=== PATIENT | female | born 2000 | race Hispanic/Latino ===

== ENCOUNTER 2022-06-04 14:05 | Inpatient (IN) | payer OTHER, SELFPAY ==
[2022-06-04] VITALS (25 sets, daily range): BP systolic 68–143; BP diastolic 36–82; PULSE 88–113; TEMP 36.5–36.6; BMI 33.7
--- NOTE | 2022-06-04 14:10 | LDADM ---
This patient, Roseline Cruz, was admitted to Labor/Delivery/Recovery 106 on 06/04/22 at 14:05. Plans for labor, pain management and were discussed with patient. Patient/family oriented to hospital policies and general routines including ID bracelet, bed and alarms, visiting hours, pain management, procedures, bathroom and other care routines, personal items, smoking policy, room service/diet and guest tray routines, infant security routines, and visiting hours. Patient/Family are encouraged to report perceived risks to care and to ask questions if they do not understand what they are told or what they should do. See OBIX for further documentation.
--- OUTSIDE RECORDS SUMMARY | 2022-06-04 14:15 | XMS_ITS | Encounter Summary ---
:2000 Author Care Team Providers Name Role Phone Broderick Treadwell MD Primary Care Provider [phone] Nelda Treadwell Primary Care Provider [phone] Reason for Visit OB visit Assessment and Plan 1. Routine care 2. History of SARS-CoV-2 Discussion Note: None recorded.Patient educational handouts: No information available. Plan of Care Reminders Provider Appointments None recorded. ? ? Lab None recorded. ? ? Referral None recorded. ? ? Procedures None recorded. ? ? Surgeries None recorded. ? ? Imaging None recorded. ? ? Medications Name Start Date ? ? ? Medications Administered None recorded. Vitals Height Weight BMI Blood Pressure 5 ft 6 in 199 lbs 32.1 kg/m2 122/80 mm[Hg] Results Lab Results None recorded. Allergies Code Code System Name Reaction Severity Onset NKDA ? ? ? Problems Name Status Onset Date Source ? Active 11/26/2021 ? History of SARS-CoV-2 Active ? ? Procedures Date Name Performed by ? 02/25/2022 US, Obstetric, Follow-up [place] [address] [place] [address] ([address]) 03/25/2022 US, Obstetric, Follow-up [place] [address] [place] [address]
--- OUTSIDE RECORDS SUMMARY | 2022-06-04 14:15 | XMS_ITS | Encounter Summary ---
:2000 Author Care Team Providers Name Role Phone Broderick Treadwell MD Primary Care Provider [phone] Nelda Treadwell Primary Care Provider [phone] Reason for Visit None recorded. Assessment and Plan 1. Pre-existing maternal disease compli cating ? US, obstetric, follow-up Discussion Note: None recorded.Patient educational handouts: No information available. Plan of Care Reminders Provider Appointments None recorded. ? ? Lab None recorded. ? ? Referral None recorded. ? ? Procedures None recorded. ? ? Surgeries None recorded. ? ? Imaging US, Obstetric, Follow-up 04/23/2022 Martin hyman Medications Name Start Date ? ? ? Medications Administered None recorded. Vitals None recorded. Results Lab Results None recorded. Allergies Code Code System Name Reaction Severity Onset NKDA ? ? ? Problems Name Status Onset Date Source ? Active 11/26/2021 ? History of SARS-CoV-2 Active ? ? Procedures Date Name Performed by ? 03/25/2022 US, Obstetric, Follow-up [place] [address] [place] [address] (Work [address]) 04/23/2022 US, Obstetric, Follow-up [place] [address] [place] [address] ([address]) Vaccine List None recorded. Social History
--- OUTSIDE RECORDS SUMMARY | 2022-06-04 14:15 | XMS_ITS | Encounter Summary ---
:2000 Author Care Team Providers Name Role Phone Broderick Treadwell MD Primary Care Provider [phone] Nelda Treadwell Primary Care Provider [phone] Reason for Visit OB visit Assessment and Plan 1. Routine care ? breast pump Discussion Note: None recorded.Patient educational handouts: No [...] BMI Blood Pressure 5 ft 6 in 201 lbs 32.4 kg/m2 110/78 mm[Hg] Results Lab Results None recorded. Allergies Code Code System Name Reaction Severity Onset NKDA ? ? ? Problems Name Status Onset Date Source ? Active 11/26/2021 ? History of SARS-CoV-2 Active ? ? Procedures Date Name Performed by ? 03/25/2022 US, Obstetric, Follow-up [place] [address] [place] [address] (Work [address]) Vaccine List None recorded. Social History Tobacco Smoking Status Never Smoker Do you have difficulty walking or climbing stairs? N What type of diet are you following? REGULAR
--- OUTSIDE RECORDS SUMMARY | 2022-06-04 14:15 | XMS_ITS | Encounter Summary ---
:2000 Author Care Team Providers Name Role Phone Broderick Treadwell MD Primary Care Provider [phone] Nelda Treadwell Primary Care Provider [phone] Reason for Visit None recorded. Assessment and Plan 1. COVID-19 ? US, obstetric, follow-up Discussion Note: None recorded.Patient educational handouts: No information available. Plan of Care Reminders Provider Appointments None recorded. ? ? Lab None recorded. ? ? Referral None recorded. ? ? Procedures None recorded. ? ? Surgeries None recorded. ? ? Imaging US, Obstetric, Follow-up 05/22/2022 Martin hyman Medications Name Start Date ? ? ? Medications Administered None recorded. Vitals None recorded. Results Lab Results None recorded. Allergies Code Code System Name Reaction Severity Onset NKDA ? ? ? Problems Name Status Onset Date Source ? Active 11/26/2021 ? History of SARS-CoV-2 Active ? ? Procedures Date Name Performed by ? 04/23/2022 US, Obstetric, Follow-up [place] [address] [place] [address] ([address]) 05/22/2022 US, Obstetric, Follow-up [place] [address] [place] [address] ([address]) Vaccine List None recorded. Social History Tobacco Smoking S
--- OUTSIDE RECORDS SUMMARY | 2022-06-04 14:15 | XMS_ITS | Encounter Summary ---
:2000 Author Care Team Providers Name Role Phone Broderick Treadwell MD Primary Care Provider [phone] Nelda Treadwell Primary Care Provider [phone] Reason for Visit OB visit Assessment and [...] BMI Blood Pressure 5 ft 6 in 209 lbs 33.7 kg/m2 117/5 mm[Hg] Results Lab Results None recorded. Allergies Code Code System Name Reaction Severity Onset NKDA ? ? ? Problems Name Status Onset Date Source ? Active 11/26/2021 ? History of SARS-CoV-2 Active ? ? Procedures Date Name Performed by ? 04/23/2022 US, Obstetric, Follow-up [place] [address] [place] [address] ([address]) 05/22/2022 US, Obstetric, Follow-up [place] [address] [place] [address]
--- OUTSIDE RECORDS SUMMARY | 2022-06-04 14:15 | XMS_ITS | Encounter Summary ---
:2000 Author Care Team Providers Name Role Phone Broderick Treadwell MD Primary Care Provider [phone] Nelda Treadwell Primary Care Provider [phone] Reason for Visit OB visit Assessment and [...] BMI Blood Pressure 5 ft 6 in 204 lbs 32.9 kg/m2 114/77 mm[Hg] Results Lab Results None recorded. Allergies Code Code System Name Reaction Severity Onset NKDA ? ? ? Problems Name Status Onset Date Source ? Active 11/26/2021 ? History of SARS-CoV-2 Active ? ? Procedures Date Name Performed by ? 03/25/2022 US, Obstetric, Follow-up [place] [address] [place] [address] ([address]) 04/23/2022 US, Obstetric, Follow-up [place] [address] [place] [address]
--- OUTSIDE RECORDS SUMMARY | 2022-06-04 14:15 | XMS_ITS | Encounter Summary ---
:2000 Author Care Team Providers Name Role Phone Broderick Treadwell MD Primary Care Provider [phone] Nelda Treadwell Primary Care Provider [phone] Reason for Visit None recorded. Assessment and Plan 1. COVID-19 ? US, obstetric, follow-up Discussion Note: None recorded.Patient educational handouts: No information available. Plan of Care Reminders Provider Appointments None recorded. ? ? Lab None recorded. ? ? Referral None recorded. ? ? Procedures None recorded. ? ? Surgeries None recorded. ? ? Imaging US, Obstetric, Follow-up 03/25/2022 Martin hyman Medications Name Start Date ? ? ? Medications Administered None recorded. Vitals None recorded. Results Lab Results None recorded. Allergies Code Code System Name Reaction Severity Onset NKDA ? ? ? Problems Name Status Onset Date Source ? Active 11/26/2021 ? History of SARS-CoV-2 Active ? ? Procedures Date Name Performed by ? 02/25/2022 US, Obstetric, Follow-up [place] [address] [place] [address] ([address]) 03/25/2022 US, Obstetric, Follow-up [place] [address] [place] [address] ([address]) Vaccine List None recorded. Social History Tobacco Smoking S
--- OUTSIDE RECORDS SUMMARY | 2022-06-04 14:15 | XMS_ITS | Encounter Summary ---
:2000 Author Care Team Providers Name Role Phone Broderick Treadwell MD Primary Care Provider [phone] Nelda Treadwell Primary Care Provider [phone] Reason for Visit OB visit Assessment and Plan Assessment Note Patient is ___weeks . Discussed plan. 1. Routine care Discussion Note: None recorded.Patient educational handouts: No [...] BMI Blood Pressure 5 ft 6 in 211 lbs 34.1 kg/m2 115/81 mm[Hg] Results Lab Results None recorded. Allergies Code Code System Name Reaction Severity Onset NKDA ? ? ? Problems Name Status Onset Date Source ? Active 11/26/2021 ? History of SARS-CoV-2 Active ? ? Procedures Date Name Performed by ? 05/22/2022 , Obstetric, Follow-up [place] [address] [place] [address] ([address]) Vaccine List None recorded. Social History Tobacco Smoking Status Never Smoker Do you have difficulty walking or climbing stairs? N
[2022-06-04 15:36] LABS: Basophils Absolute Auto 0.1 K/mm3 (0.0-0.1); Basophils Percent Auto 0.5 % (0.2-1.2); Eosinophils Absolute Auto 0.1 K/mm3 (0-0.3); Eosinophils Percent Auto 0.6 % (0-4.4); Hematocrit 38.3 % (37.0-47.0); Hemoglobin 12.4 g/dL (12.0-15.0); Immature Granulocyte Absolute 0.16 K/mm3 (0.00-0.031); Immature Granulocyte Percent A 1.5 % (0-0.5); Lymphocytes Absolute Auto 2.98 K/mm3 (0.9-3.2); Lymphocytes Percent Auto 28.7 % (18.3-44.2); Mean Corpuscular HGB Conc 32.4 g/dl (32-36); Mean Corpuscular Hemoglobin 30.3 pg (26-34); Mean Corpuscular Volume 93.6 fl (80-100); Mean Platelet Volume 11.7 fl (7.4-10.4); Monocytes Absolute Auto 0.7 K/mm3 (0.1-0.6); Monocytes Percent Auto 6.3 % (2.6-8.5); Neutrophils Absolute Auto 6.5 K/mm3 (1.3-6.7); Neutrophils Percent Auto 62.4 % (45.5-73.1); Platelet Count Result 216 k/mm3 (150-375); Red Blood Count 4.09 M/mm3 (4.2-5.4); Red Cell Distribution Width 14.4 % (11.5-14.5); White Blood Count 10.4 K/mm3 (4.5-10.0)
[2022-06-04 15:47] LABS: Alanine Aminotransferase 30 U/L (6-35); Alkaline Phosphatase 328 U/L (38-126); Anion Gap 11 mmol/L (8-16); Aspartate Amino Transferase 27 U/L (14-36); Bilirubin,Total 0.4 mg/dL (0.2-1.3); Blood Urea Nitrogen 6 mg/dL (7-17); Calcium 9.4 mg/dL (8.4-10.2); Carbon Dioxide 20 mmol/L (22-30); Chloride 102 mmol/L (98-107); Estimated Glomerular Filt Rate > 60; Glucose 84 mg/dL (65-110); Potassium 3.8 mmol/L (3.4-5.0); Sodium 133 mmol/L (137-145)
[2022-06-04] MEDS: miSOPROStol 25 MCG TABLET VAGINAL ×2 (16:14→20:29)
[2022-06-05] VITALS (192 sets, daily range): BP systolic 73–136; BP diastolic 40–97; PULSE 25–138; RESP 18; TEMP 36.1–36.7; O2SAT 78–100
[2022-06-05] MEDS: OXYTOCIN 30 UNITS/NS 500 ML 30 UNITS/500 ML BAG 6 UNITS IV CONT (00:21)
[2022-06-05] MEDS: LACTATED RINGERS 1,000 ML 125 ML IV CONT ×4 (00:21→16:02)
--- NOTE | 2022-06-05 07:04 | PM.IMHP ---
H&P: HPI History of Present Illness Date/Time: 06/05/22 07:04 Chief Complaint: induction of labor Narrative: Roseline is a 21yo G1 at 39.1 who was admitted for IOL for presumed cholestasis with itching of hands and feet. cytotec x2 overnight. FHT category 1. GBS neg. otherwise uncomplicated. Review of Systems Review of Systems: All systems reviewed & are unremarkable except as noted in HPI and below PMFSH Family History Family History (Updated 05/15/22 @ 12:59 by Lacey Nayak RN) Mother Hypertension Pre-diabetes Social History Social History Smoking status: Never smoker Second hand tobacco smoke exposure: No Substance use: never Spiritual care concerns: No Meds Home Medications and Allergies Home Medications Medication Instructions Recorded Confirmed Type aspirin 81 mg tablet 81 mg PO DAILY 05/15/22 05/15/22 History prenat.vits,gema,owl-sfpd-mfgux 1 tablet PO DAILY 05/15/22 05/15/22 History Allergies Allergy/AdvReac Type Severity Reaction Status Date / Time No Known Allergies Allergy Verified 05/15/22 12:54 Vital Signs Vital Signs - 24 hr 06/04/22 15:01 06/04/22 15:16 06/04/22 15:31 Temperature Pulse Rate 89 89 96 Blood Pressure 115/77 110/71 110/73 Oxygen Delivery 06/04/22 15:46 06/04/22 16:01 06/04/22 16:16 Temperature Pulse Rate 94 103 H 88 Blood Pressure 106/71 87/55 L 105/70 Oxygen Delivery 06/04/22 16:31 06/04/22 16:46 06/04/22 17:01 Temperature Pulse Rate 92 113 H 92 Blood Pressure 106/63 111/57 L 110/61 Oxygen Delivery 06/04/22 17:16 06/04/22 17:31 06/04/22 17:46 Temperature Pulse Rate 88 89 89 Blood Pressure 101/52 L 100/53 L 96/52 L Oxygen Delivery 06/04/22 18:01 06/04/22 18:15 06/04/22 18:16 Temperature Pulse Rate 104 H 88 92 Blood Pressure 68/36 L 93/55 L 106/71 Oxygen Delivery 06/04/22 16:12 06/04/22 18:00 06/04/22 19:01 Temperature 97.7 F 97.9 F Pulse Rate 99 Blood Pressure 122/76 Oxygen Delivery 06/04/22 20:01 06/04/22 20:37 06/04/22 21:01 Temperature Pulse Rate 94 100 102 H Blood Pressure 110/67 113/69 120/73 Oxygen Delivery 06/04/22 21:31 06/04/22 22:01 06/04/22 23:01 Temperature Pulse Rate 98 90 94 Blood Pressure 143/76 H 130/70 98/82 L Oxygen Delivery 06/05/22 00:01 06/04/22 22:00 06/05/22 01:01 Temperature 97.9 F Pulse Rate 93 84 Blood Pressure 114/74 119/84 Oxygen Delivery 06/05/22 02:01 06/05/22 03:01 06/05/22 04:01 Temperature Pulse Rate 83 74 83 Blood Pressure 120/64 99/55 L 107/64 Oxygen Delivery 06/05/22 02:00 06/05/22 05:01 06/05/22 06:01 Temperature 97.9 F Pulse Rate 100 79 Blood Pressure 123/53 L 104/40 L Oxygen Delivery 06/05/22 06:00 06/05/22 06:29 06/05/22 06:31 Temperature 97.9 F Pulse Rate 108 H 84 Blood Pressure 112/63 121/64 Oxygen Delivery 06/05/22 06:46 06/04/22 15:00 06/04/22 18:29 Temperature Pulse Rate 80 Blood Pressure 127/61 Oxygen Delivery Room Air Room Air Exam Const: General: no acute distress Resp: Effort & Inspection: normal respiratory effort Auscultation: clear to auscultation bilaterally Cardio: Rate: regular rate Rhythm: regular rhythm GI: GI Palp: Yes Soft to palpation Extrem: General: normal to inspection H&P: Results Labs Labs: Short CBC 06/04/22 Range/Units 15:28 WBC 10.4 H (4.5-10.0) K/mm3 Hgb 12.4 (12.0-15.0) g/dL Hct 38.3 (37.0-47.0) % Plt Count 216 (150-375) k/mm3 BMP 06/04/22 15:28 Sodium 133 L Potassium 3.8 Chloride 102 Carbon Dioxide 20 L BUN 6 L Creatinine 0.60 L Glucose 84 Calcium 9.4 Liver Function 06/04/22 Range/Units 15:28 Total Bilirubin 0.4 (0.2-1.3) mg/dL AST 27 (14-36) U/L ALT 30 (6-35) U/L Alkaline Phosphatase 328 H (38-126) U/L Albumin 4.0 (3.5-5.1) g/dL Assessment and Plan Additional Plan Here for induction
--- NOTE | 2022-06-05 10:24 | WPDANESEPP ---
Anes - Eval Pre Procedure Procedure: Labor epidural Date/Time: 06/05/22 10:24 Surgeon: Steffany Preop Diagnosis: Abd pain with contractions Pre Op Diagnosis: Induction of Labor Patient Data Age: 21 Gender: F Height: 1.68 m Weight: 95 kg Last Vital Signs Temp 98.1 F 06/05/22 09:00 Pulse 106 H 06/05/22 10:16 BP 124/90 06/05/22 10:16 O2 Del Method Room Air 06/04/22 18:29 Allergies Allergy/AdvReac Type Severity Reaction Status Date / Time No Known Allergies Allergy Verified 05/15/22 12:54 Home Medications Medication Instructions Recorded Confirmed Type aspirin 81 mg tablet 81 mg PO DAILY 05/15/22 05/15/22 History prenat.vits,gema,lbq-aees-gfilv 1 tablet PO DAILY 05/15/22 05/15/22 History Laboratory Tests 06/04/22 06/04/22 06/04/22 15:28 15:28 15:28 WBC 10.4 K/mm3 H K/mm3 (4.5-10.0) RBC 4.09 M/mm3 L M/mm3 (4.2-5.4) Hgb 12.4 g/dL g/dL (12.0-15.0) Hct 38.3 % % (37.0-47.0) MCV 93.6 fl fl (80-100) MCH 30.3 pg pg (26-34) MCHC 32.4 g/dl g/dl (32-36) RDW 14.4 % % (11.5-14.5) Plt Count 216 k/mm3 k/mm3 (150-375) MPV 11.7 fl H fl (7.4-10.4) Immature Gran % (Auto) 1.5 % H % (0-0.5) Neut % (Auto) 62.4 % % (45.5-73.1) Lymph % (Auto) 28.7 % % (18.3-44.2) [place] % (Auto) 6.3 % % (2.6-8.5) Eos % (Auto) 0.6 % % (0-4.4) Baso % (Auto) 0.5 % % (0.2-1.2) Lymph # (Auto) 2.98 K/mm3 K/mm3 (0.9-3.2) [place] # (Auto) 0.7 K/mm3 H K/mm3 (0.1-0.6) Eos # (Auto) 0.1 K/mm3 K/mm3 (0-0.3) Baso # (Auto) 0.1 K/mm3 K/mm3 (0.0-0.1) Abs Immat Gran (auto) 0.16 K/mm3 H K/mm3 (0.00-0.031) Absolute Neuts (auto) 6.5 K/mm3 K/mm3 (1.3-6.7) Absolute Nucleated RBC 0.0 K/mm3 K/mm3 (0.0-0.012) Nucleated RBC % 0.0 % % (0.0-0.2) Sodium Potassium Chloride Carbon Dioxide Anion Gap BUN Creatinine Estim Creat Clear Calc Estimated GFR Glucose Calcium Total Bilirubin AST ALT Alkaline Phosphatase Total Protein Albumin Cholic Acid Deoxycholic Acid Chenodeoxycholic Acid Total Bile Acids RPR Pending Blood Type O Positive Antibody Screen Negative 06/04/22 06/04/22 15:28 15:28 WBC RBC Hgb Hct MCV MCH MCHC RDW Plt Count MPV Immature Gran % (Auto) Neut % (Auto) Lymph % (Auto) [place] % (Auto) Eos % (Auto) Baso % (Auto) Lymph # (Auto) [place] # (Auto) Eos # (Auto) Baso # (Auto) Abs Immat Gran (auto) Absolute Neuts (auto) Absolute Nucleated RBC Nucleated RBC % Sodium 133 mmol/L L mmol/L (137-145) Potassium 3.8 mmol/L mmol/L (3.4-5.0) Chloride 102 mmol/L mmol/L (98-107) Carbon Dioxide 20 mmol/L L mmol/L (22-30) Anion Gap 11 mmol/L mmol/L (8-16) BUN 6 mg/dL L mg/dL (7-17) Creatinine 0.60 mg/dL L mg/dL (0.7-1.0) Estim Creat Clear Calc Not Reportable Estimated GFR > 60 (59 - ) Glucose 84 mg/dL mg/dL (65-110) Calcium 9.4 mg/dL mg/dL (8.4-10.2) Total Bilirubin 0.4 mg/dL mg/dL (0.2-1.3) AST 27 U/L U/L (14-36) ALT 30 U/L U/L (6-35) Alkaline Phosphatase 328 U/L H U/L (38-126) Total Protein 8.0 g/dL g/dL (6.3-8.2) Albumin 4.0 g/dL g/dL (3.5-5.1) Cholic Acid Pending Deoxycholic Acid Pending Chenodeoxy
[2022-06-05 16:23] LABS: Rapid Plasma Reagin Non-Reactive (NonReactive)
--- NOTE | 2022-06-05 19:07 | P.PCNOB_ITS ---
OB - Delivery Note Procedure Delivery date: 06/05/22 Procedure: Events: Other (presumed cholestasis) Induction method: AROM, Per Misoprostol Protocol and Per Pitocin Protocol Delivery monitor: External FHT and Internal Uterine Route of delivery: Laceration Description: Perineal - 2nd Degree, Labial (right) and Other (left labial hematoma, 3x4cm, size stable over 20 min) Delivery repair: vicryl Quantitative Blood Loss (ml): 390 Anesthesia type: Epidural Disposition: Floor Narrative: With adequate expulsive efforts by the mother, the baby's head was delivered OA. The baby's anterior shoulder was delivered under the pubic symphysis without difficulty. The posterior shoulder and the rest of the baby delivered without difficulty. The was placed on the mothers chest and suctioned and stimul ated. The cord was clamped and cut after 60 seconds. Mother and baby both stable. [place] Baby Date of : 06/05/22 Time of : 18:35 Weeks of gestation at delivery: 39 gender: Female Weight (pounds): 7 Weight (ounces): 9 presentation: vertex Placenta delivery description: Spontaneous Cord Vessel Description: 3 Vessels and Delayed Cord Clamping score one minute: 9 score five minutes: 9
[2022-06-05] MEDS: OXYTOCIN 30 UNITS/NS 500 ML 30 UNITS/500 ML BAG 125 UNITS IV CONT (19:31)
--- NOTE | 2022-06-05 21:33 | PC.NURSE ---
Patient transferred to post room #286 per wheelchair from labor and delivery. Support person present. Oriented to unit, room, information board, rooming in, admission packet and security measures. Patient verbalizes understanding.
[2022-06-06 04:40] VITALS: BP 102/62; PULSE 98; RESP 18; TEMP 36.5
[2022-06-06] MEDS: IBUPROFEN 600 MG TABLET PO ×3 (05:22→19:57)
[2022-06-06 05:34] LABS: Hemoglobin 11.3 g/dL (12.0-15.0)
[2022-06-06 08:00] VITALS: BP 95/61; PULSE 94; RESP 16; TEMP 36.8; O2SAT 100
--- NOTE | 2022-06-06 08:18 | PM.OBPNVD ---
OB - PN: Subj Subjective Date/time seen: 06/06/22 08:18 Patient comments: no complaints, pain well controlled, incisional pain, tolerating diet and flatus present OB - PN: Obj Data Labs CBC & Chem 7: 06/06/22 05:26 06/04/22 15:28 Labs: Laboratory Results - last 24 hr 06/04/22 06/06/22 15:28 05:26 Hgb 11.3 L Hct 34.0 L RPR Non-reactive OB - PN A/P Plan day: 1 Plan: routine care Comments: No problems, routine care Time Spent With Patient Time: Total time spent is greater than 50% in coordination of care (as documented) at patient's floor/unit and/or counseling patient: Exam Const: General: comfortable, no acute distress and alert Resp: Effort & Inspection: normal respiratory effort Auscultation: no crackles, no rales and no rhonchi Cardio: Rate: regular rate Heart sounds: no click, no murmurs and no rubs GI: Inspection: non-distended GI Palp: No Tenderness to palpation present (GI) Auscultation: normal bowel sounds Other: Incision - CDI Extrem: General: normal to inspection, no pedal edema and no calf tenderness
[2022-06-06] MEDS: ACETAMINOPHEN 325 MG TABLET 650 MG PO ×2 (08:34→16:16)
[2022-06-06] MEDS: MULTIVIT/MIN/PREN/FOL AC/IRON TABLET 1 TAB PO (08:35)
[2022-06-06] MEDS: DOCUSATE SODIUM 100 MG CAPSULE PO ×2 (08:35→16:16)
[2022-06-06] MEDS: LANOLIN (LANSINOH) 7.5 GM CREAM 1 APPLIC TOPICAL (09:29)
--- NOTE | 2022-06-06 12:35 | PC.NURSE ---
[id number] - Introductions were made, then consulted with patient to assess needs related to . Mother led the conversation with her?plans to feed?her infant and the?experience so far. Resources provided for inpatient and outpatient services using a resource guide and mom/baby guide. Mother voiced understanding of information and will call if there is a request for assistance. Reported to primary RN.
--- NOTE | 2022-06-06 12:35 | PC.NURSE ---
[id number] Pt is demonstrating the skin to skin that was suggested and encouraged with introduction. Consulted with patient to assess needs related to with showing late feeding cues. Mother works well with her infant with encouragement. Reviewed working with , breast, nipples and how to protect the nipples with an optimal deep latch, good positioning, and good hand washing. Encouraged understanding the benefits of skin to skin, responding to feeding cues, frequencies of feeding 8-12 times in 24 hours (approximately 2-3 hours), duration of feedings, milk production, intake/output feeding sheet and signs of adequate intake encouraging swallowing at the breast. Reviewed positioning and alignment, supporting breast, off-centered (asymmetrical latch) and leading with the chin with big open wide gape. latched optimally to the right breast in football position. Education given to mother of how to visualize suck/swallow ratios and drinking at the breast. was able to maintain latch without discomfort to mother. Nipple care reviewed with optimal latch and good positioning and to have clean hands when touching the nipple/breast as needed. Resources used to facilitate learning were used from the visual handout, tool, and mom/baby guide. Father of the baby is actively involved supporting the couplet. Mother voiced understanding of the education shared, calling for assistance if the infant does not latch or if there is discomfort with . Reported to the primary RN.
[2022-06-06 12:41] VITALS: BP 104/59; PULSE 101; RESP 18; TEMP 36.3; O2SAT 100
[2022-06-06] MEDS: WITCH HAZEL 40 PADS 1 PAD TOPICAL (12:52)
--- NOTE | 2022-06-06 14:06 | WPDANLDPN2 ---
Anes-Prog Note L&D Date/Time: 06/06/22 14:06 Comfortable throughout: labor and delivery Neuraxial method: epidural Epidural/Spinal procedure site: clean & non-tender Neuro status: Neuro function grossly intact. Cardiovascular status: normal Respiratory status: normal Airway patency: baseline Mental status: baseline Post-Op hydration status: normal Vital Signs: Last Vital Signs Temp 36.3 C L 06/06/22 12:41 Pulse 101 H 06/06/22 12:41 Resp 18 06/06/22 12:41 BP 104/59 L 06/06/22 12:41 Pulse Ox 100 06/06/22 12:41 O2 Del Method Room Air 06/06/22 08:30 Pain score (VAS): 0/10 I/O: Intake & Output 06/05/22 06/06/22 06/06/22 23:59 07:59 15:59 Intake Total 1000 500 Output Total 425 Balance 575 500 Post-procedural complaints: none Patient feedback: Patient satisfied with anesthetic care.
[2022-06-06 15:30] VITALS: BP 89/52; PULSE 95; RESP 16; TEMP 36.5; O2SAT 100
[2022-06-06 20:10] VITALS: BP 103/58; PULSE 88; RESP 16; TEMP 36.7; O2SAT 98
[2022-06-07] MEDS: IBUPROFEN 600 MG TABLET PO ×2 (05:41→14:54)
--- NOTE | 2022-06-07 07:29 | PM.OBPNVD ---
OB - PN: Subj Subjective Date/time seen: 06/07/22 07:29 s/p vaginal delivery day 2 OB - PN: Obj Data Labs CBC & Chem 7: 06/06/22 05:26 06/04/22 15:28 OB - PN A/P Plan day: 2 Plan: routine care and discharge home Time Spent With Patient Time: Total time spent is greater than 50% in coordination of care (as documented) at patient's floor/unit and/or counseling patient: Review of Systems Review of Systems: All systems reviewed & are unremarkable except as noted in HPI and below Exam Const: General: cooperative, healthy appearing and comfortable
--- NOTE | 2022-06-07 07:32 | PM.OBDSVD ---
DS: Admitting Diagnosis Discharge Date 06/07/22 Admitting Diagnosis cholestasis, IOL OB - DS: Summary OB Procedures : None OB Procedures Intrapartum: Spontaneous Vag Delivery OB Procedures: : None Time Spent with Patient Time attestation: Total time spent providing and/or coordinating discharge services: Discharge Plan Discharge Attending physician on discharge: Melvin Siegel Discharging Clinician: Maya Rizvi Patient Disposition: Home, Self-Care Activity: pelvic rest Diet: regular Discharge Instructions: Education: Mom and Baby Guide Given to: Mother Follow-Up: Call your delivering provider's office for an appointment to be seen in: 6 Weeks Mom and baby should come to the [facility] for the follow-up appointment. Appointment Date/Time: June 08, 2022 at 10:00 am What to expect at your follow-up visit: Blood Pressure Check Call [phone] if you are unable to keep your appointment time. BREAST CARE: * Wear a snug supportive bra. * For engorgement discomfort: Breast Feeding: * Apply warm moist washcloths * Express milk as needed to relieve engorgement * Wear loose clothing Bottle Feeding: * May apply ice packs * For sore nipples: * Identify correct latch-on * Apply warm moist washcloths before and after nursing * Air dry nipples after nursing * May apply Lansinoh cream to nipples PERINEAL CARE: * Until bleeding stops, use your emanuel bottle after urinating * Change your pad frequently throughout the day * You may take sitz baths several times a day (fill your bathtub with warm water and soak for 20 minutes.) Do NOT bathe in the water * No tub baths until seen by your physician - You may shower ACTIVITY: * Rest as much as possible. * Do not exercise or lift anything heavier than your baby (such as laundry or other children.) * Avoid stairs or driving as much as possible. * Do not put anything into the vagina. No douching, tampons, or sexual activity until seen by physician. NOTIFY PHYSICIAN IF YOU HAVE ANY QUESTIONS OR IF ANY OF THE FOLLOWING SYMPTOMS OCCUR: * If your perineum becomes red, swollen, or more painful than what you have experienced in the hospital. * If your vaginal bleeding becomes foul smelling. * If your vaginal bleeding becomes more heavy than a period or if your bleeding changes from pink to bright red. However, you may pass an occasional walnut-sized clot once or twice for the first week . * If you experience a sharp, shooting pain in you calves. * If you discover a hard, reddened area on your breast or if you experience flu-like symptoms. * If you have a fever of 100.4 or greater DIET: * Eat regular, well-balanced meals. * Drink plenty of fluids daily. If , drink to thirst. Patient Instructions: Antibiotic Form Stand Alone Forms: General Discharge Information Follow-up/Referrals: Stacie Jeter MD [Physician] - 4 Weeks Discharge Medications: New ibuprofen 600 mg Tablet 600 mg PO Q6H PRN (Reason: Cramping) Qty: 30 0RF Continued #2 Tablet 1 tablet PO DAILY Discontinued Adult Low Dose Aspirin 81 mg Tablet 81 mg PO DAILY Date of admission: 06/04/22 14:05 Primary Care Provider: PHYSICIAN,GROUND HOST/HOSTESS Admitting Provider: Stacie Jeter Attending physician on admission: Stacie Jeter Condition: Stable
[2022-06-07 08:00] VITALS: BP 101/69; PULSE 94; RESP 16; TEMP 36.8; O2SAT 100
--- NOTE | 2022-06-07 08:00 | PC.NURSE ---
PT introductions made and plan of care discussed per post , pain management, breast feeding, daily care activities and pending discharge to home. PT and significant other both recipients of such care and no barriers to learning identified at this time. PT received such instructions per one to one discussion, mom baby care guide and demonstrations this shift. PT verbalized understanding of such care.
[2022-06-07 10:00] VITALS: PULSE 94; RESP 16; O2SAT 100
--- NOTE | 2022-06-07 10:57 | PC.NURSE ---
[phone] Consulted with patient to assess needs related to . Mother led conversation with her experience with feeding baby so far. Mother works well with her with encouragement. Mother states if her baby doesn't latch she will give baby the instant formula that the staff gave her. Reviewed milk production and how to protect her milk supply if her is receiving a bottle. Reviewed working with infant, breast, nipples and how to protect the nipples with an optimal deep latch, good positioning, and good hand washing. Encouraged understanding the benefits of skin to skin, responding to feeding cues, frequencies of feeding 8-12 times in 24 hours (approximately 2-3 hours), duration of feedings, milk production, intake/output feeding sheet and signs of adequate intake encouraging swallowing at the breast. Reviewed positioning and alignment, supporting breast, off-centered (asymmetrical latch) and leading with the chin with big open wide gape. Infant latched optimally to the left breast in football position. Education given to mother of how to visualize suck/swallow ratios and drinking at the breast. was able to maintain latch without discomfort to mother for 15 minutes and nipple was not misshaped when infant self detached. Nipple care reviewed with optimal latch and good positioning, comfort, healing with warm, wet washcloth to rinse breast, then leave open to air-dry, colostrum may be left on nipples to dry but have clean hands when touching the nipple/breast as needed. Assisted mother with her W.I.C. support person and mother states she is to go by the office today and cone picker her pump. Infant is skin to skin with mother with the hands relaxed. Resources used to facilitate learning were used from the tool/mom and baby guide. Mother voiced understanding of the education shared, calling for assistance if the infant does not latch or if there is discomfort with . Reported to the primary RN.
[2022-06-07] MEDS: DOCUSATE SODIUM 100 MG CAPSULE PO (14:52)
[2022-06-07] MEDS: ACETAMINOPHEN 325 MG TABLET 650 MG PO (14:52)
[2022-06-07] MEDS: MULTIVIT/MIN/PREN/FOL AC/IRON TABLET 1 TAB PO (14:52)
--- NOTE | 2022-06-07 15:00 | PC.NURSE ---
PT discharged to home ambulatory accompanied by fob and infant and taken to waiting car. Follow up appts confirmed
[2022-06-08 10:20] VITALS: BP 110/60; PULSE 83; RESP 18; TEMP 37.3; O2SAT 100
[2022-06-13 23:20] LABS: Chenodeoxycholic Acid 0.6 umol/L (< OR = 3.9); Cholic Acid 1.4 umol/L (< OR = 2.8); Deoxycholic Acid <0.5 umol/L (< OR = 2.3)
== END 2022-06-07 15:00 | disposition home or self-care (01) | DRG 560 ==
LOC: ANHLDR 06-05 15:12 → ANHOB2 06-05 21:49
PROVIDERS: Admitting Provider Obstetrics & Gynecology; Visit Provider Obstetrics & Gynecology
DX: O26.62 Liver and biliary tract disorders in childbirth (principal); Z37.0 Single live birth; Z3A.39 39 weeks gestation of pregnancy; K83.1 Obstruction of bile duct; O36.8330 Maternal care for abnormalities of the fetal heart rate or rhythm, third trimester, not applicable or unspecified; M96.840 Postprocedural hematoma of a musculoskeletal structure following a musculoskeletal system procedure
CPT/HCPCS: 36415; 80053; 82542; 85014; 85018; 85025; 86592; 86850; 86900; 86901; A9270; J2590; J2795; J7120

== ENCOUNTER 2024-09-07 17:31 | Emergency (ER) | payer OTHER, SELFPAY ==
[2024-09-07] VITALS (7 sets, daily range): BP systolic 111–129; BP diastolic 73–79; PULSE 102; RESP 16; TEMP 36.3–36.7; O2SAT 100
--- NOTE | 2024-09-07 17:50 | ED_ITS ---
HPI - Female Genitourinary General Chief complaint: Vaginal Bleeding Stated complaint: vag bleeding, + preg test Time Seen by Provider: 09/07/24 17:43 Source: patient Mode of arrival: ambulatory Limitations: no limitations History of Present Illness HPI Narrative: Patient is a 24-year-old 001 female whose last menstrual period 08/03/2024. She has had 2 positive home tests. Her ssas developer vehicle maintenance technician traffic analysis technician used to be Dr. Jeter but now she sees Natacha Rizvi although she has not yet established with them for this . Had an upcoming appointment 10/08/24. She started to have vaginal bleeding today. It started as light spotting a light flow with dark red spots. She did not have any panty liners or maxi pads but she states that it is not in her underwear that she knows of. She is also having some abdominal cramping and back pain. She was at her mother's at the time celebrating her birthday (today). Related Data Home Medications Medication Instructions Recorded Confirmed prenat.vits,gema,pgu-nvpy-ntgee 1 tablet PO DAILY 05/15/22 05/15/22 Allergies Allergy/AdvReac Type Severity Reaction Status Date / Time No Known Allergies Allergy Verified 05/15/22 12:54 [facility] Past Medical History Medical History Obesity Family History Family History Mother Hypertension Pre-diabetes Social History Social History Smoking status: Never smoker Second hand tobacco smoke exposure: No Substance use: never Spiritual care concerns: No Exam Narrative: GENERAL: Well-appearing, well-nourished, and in no acute distress. Non toxic appearing HEAD: Normocephalic, atraumatic. EYES: Non injected, non icteric ENT: Nares clear, no rhinorrhea or epistaxis. NECK: Supple. CHEST: Speaking in full sentences. No respiratory distress. HEART: Tachycadic rate and rhythm. . ABDOMEN: Soft, nondistended. no tenderness to palpation of abdomen x4 quadrants. No suprapubic tenderness. no rigidity or guarding. Not peritoneal. EXTREMITIES: Normal range of motion. No lower extremity edema. SKIN: Warm, dry, no rash. NEURO: No focal deficits. Alert and oriented x3. PSYCH: Normal mood and affect. Nearly tearful, appropriate. Course Vital Signs Vital signs: Vital Signs Temperature 97.3 F L 09/07/24 17:32 Pulse Rate 102 H 09/07/24 17:32 Respiratory Rate 16 09/07/24 17:32 Blood Pressure 129/79 09/07/24 17:32 Pulse Oximetry 100 09/07/24 17:32 Oxygen Delivery Room Air 09/07/24 17:32 Temperature 98.1 F 09/07/24 19:47 Pulse Rate 102 H 09/07/24 17:32 Respiratory Rate 16 09/07/24 17:32 Blood Pressure 116/73 09/07/24 18:16 Pulse Oximetry 100 09/07/24 18:16 Oxygen Delivery Room Air 09/07/24 17:32 MDM - Female Genitourinary MDM Narrative Medical decision making narrative: This patient is a 24 yo G 2 P 1001 female at 5 weeks 0 days gestational age by stated LMP 08/03/24 who comes to the emergency department with vaginal bleeding and abdominal cramping starting today. Has not yet established with her ObGYN Natacha Rizvi for this ; location of unknown. In the emergency department she is afebrile and hemodynamically stable, with vital signs notable for mild tachycardia. DIFFERENTIAL DIAGNOSIS Considered ectopic , spectrum of miscarriage/ (threatened, inevitable, incomplete, complete, septic) as well as causes of female-specific abdominal pain unrelated to (e.g., pelvic inflammatory disease with or without tubo-ovarian abscess, Jmlc-Zaam-Lhdeqo, UTI, ovarian torsion, etc.). Also considered causes of abdominal pain that are not gender-specific (e.g., appendicitis, volvulus, small bowel obstruction, mesenteric adenitis, nephrolithiasis, acute cholecystitis/choledocholithiasis and other biliary pathology, etc.). Patient well-appearing with acceptable vital signs. Type and screen and serum beta hCG (quantitative) are ordered. Will give her 1g Tylenol and f/u on CBC and CMP. Beta-hCG is not detectable. Patient is Rh positive and therefore does not require RhoGAM. Her workup was WNL. No white count. No electrolyte abnormalities. No e/o renal injury. UA without evidence of infection; suspect the hematuria to be secondary to bleeding. On reassessment, the patient appears well, and reports feeling better. My suspicion for acute abdomen is quite low and she was given strict return precautions for vaginal bleeding or discharge, fever (temperature above 100.4F), lightheadedness/syncope, intractable pain, etc. We Discuss that the negative bhcg likely represents that she is miscarrying/has miscarried. We discussed the very low probability that this represents an ectopic . She can f/u with her OBGYN as needed and will be given a prescription for Tylenol. All other questions answered, patient is tearful but verifies understanding. Lab Data Attestation: I reviewed the patient's lab results. 09/07/24 18:04 09/07/24 18:04 Labs: Lab Results 09/07/24 09/07/24 09/07/24 Range/Units 18:01 18:04 18:38 WBC 9.2 (4.5-10.0) K/mm3 RBC 4.05 L (4.2-5.4) M/mm3 Hgb 12.5 (12.0-15.0) g/dL Hct 37.1 (37.0-47.0) % MCV 91.6 (80-100) fl MCH 30.9 (26-34) pg MCHC 33.7 (32-36) g/dl RDW 12.6 (11.5-14.5) % Plt Count 223 (150-375) k/mm3 MPV 11.1 H (7.4-10.4) fl Immature Gran % (Auto) 0.2 (0-0.5) % Neut % (Auto) 47.1 (45.5-73.1) % Lymph % (Auto) 44.5 H (18.3-44.2) % Wilcox % (Auto) 7.0 (2.6-8.5) % Eos % (Auto) 0.9 (0-4.4) % Baso % (Auto) 0.3 (0.2-1.2) % Lymph # (Auto) 4.11 H (0.9-3.2) K/mm3 Wilcox # (Auto) 0.7 H (0.1-0.6) K/mm3 Eos # (Auto) 0.1 (0-0.3) K/mm3 Baso # (Auto) 0.0 (0.0-0.1) K/mm3 Abs Immat Gran (auto) 0.02 (0.00-0.031) K/mm3 Absolute Neuts (auto) 4.3 (1.3-6.7) K/mm3 Absolute Nucleated RBC 0.000 (0.0-0.012) K/mm3 Nucleated RBC % 0.0 (0.0-0.2) % PT 13.1 (11.1-14.7) Seconds INR 0.9 APTT 26.5 (22.3-36.8) Seconds Sodium 139 (137-145) mmol/L Potassium 3.5 (3.4-5.0) mmol/L Chloride 105 (98-107) mmol/L Carbon Dioxide 25 (22-30) mmol/L Anion Gap 9 (4-12) mmol/L BUN 13 D (7-17) mg/dL Creatinine 0.80 (0.7-1.0) mg/dL Estim Creat Clear Calc 108 ml/min Estimated GFR > 60 (59 - ) Glucose 101 (65-110) mg/dL Calcium 8.9 (8.4-10.2) mg/dL Total Bilirubin 0.3 (0.2-1.3) mg/dL AST 30 (14-36) U/L ALT 32 (6-35) U/L Alkaline Phosphatase 65 (38-126) U/L Total Protein 8.0 (6.3-8.2) g/dL Albumin 4.2 (3.5-5.1) g/dL Beta HCG, Quant < 2.39 mIU/ML Urine Color Yellow (Yellow) Urine Appearance Clear (Clear) Urine pH 7.0 (5.0-9.0) Ur Specific Lisle 1.025 (1.001-1.035) Urine Protein Negative (Negative) mg/dL Urine Glucose (UA) Negative (Negative) mg/dL Urine Ketones Trace H (Negative) mg/dL Ur Blood (Man) 3+ H (Negative) Urine Nitrate Negative (Negative) Urine Bilirubin Negative (Negative) Urine Urobilinogen 1.0 (<2.0) mg/dL Leukocyte Esterase Rfl Negative (Negative) NEGIN/UL Urine RBC >100 H (0-2) /hpf Urine WBC 0-5 (0-3) /hpf Ur Squamous Epith Cells None seen (Few) /hpf Urine Bacteria None seen /hpf Urine Casts 0-2 POC Urine HCG, Qual Negative (Negative) Blood Type O Positive Antibody Screen Negative Screen TNP Doses of RhIg Required 0 Discharge Plan Discharge Clinical Impression: Miscarriage, Hematuria Patient Disposition: Home, Self-Care Condition: Stable Instructions: Antibiotic Form, Miscarriage (ED), Hematuria (ED) Additional Instructions: As we discussed, because you have negative urine and blood tests here (detecting beta hcg), the bleeding likely represents miscarriage. You may continue to have more cramping and bleeding as your body tries to expel this. It is safe to take acetaminophen as well as ibuprofen together in this circumstance. follow-up with your ObGyn. Return to the ED with any new/worsening symptoms such as pain not responding to the medication, fever greater than 100.4? F, bleeding saturating 2 maxi pads an hour for 2-3 hours, fainting/nearly passing out, etc. Use heating pads and take warm showers/bath. Any woman of reproductive age who is trying to get should be taking a vitamin so these have been prescribed as well. Prescriptions: New acetaminophen 500 mg capsule 1,000 mg PO Q6H PRN (Reason: pain) Qty: 30 0RF ibuprofen 600 mg tablet 600 mg PO TID PRN (Reason: pain) Qty: 30 0RF Classic 28 mg iron- 800 mcg tablet 1 tablet PO DAILY 30 Days Qty: 30 0RF No Action prenat.vits,gema,fte-gqil-uymta Tablet 1 tablet PO DAILY ibuprofen 600 mg Tablet 600 mg PO Q6H PRN (Reason: Cramping) Qty: 30 0RF Follow-up/Referrals: Maya Rizvi CNM [Primary Care Provider] - Stand Alone Forms: Work/School Release IP Time of Disposition: 19:12
[2024-09-07 18:12] LABS: Basophils Percent Auto 0.3 % (0.2-1.2); Eosinophils Absolute Auto 0.1 K/mm3 (0-0.3); Eosinophils Percent Auto 0.9 % (0-4.4); Hematocrit 37.1 % (37.0-47.0); Hemoglobin 12.5 g/dL (12.0-15.0); Immature Granulocyte Absolute 0.02 K/mm3 (0.00-0.031); Immature Granulocyte Percent A 0.2 % (0-0.5); Lymphocytes Absolute Auto 4.11 K/mm3 (0.9-3.2); Lymphocytes Percent Auto 44.5 % (18.3-44.2); Mean Corpuscular HGB Conc 33.7 g/dl (32-36); Mean Corpuscular Hemoglobin 30.9 pg (26-34); Mean Corpuscular Volume 91.6 fl (80-100); Mean Platelet Volume 11.1 fl (7.4-10.4); Monocytes Absolute Auto 0.7 K/mm3 (0.1-0.6); Neutrophils Absolute Auto 4.3 K/mm3 (1.3-6.7); Neutrophils Percent Auto 47.1 % (45.5-73.1); Platelet Count Result 223 k/mm3 (150-375); Red Blood Count 4.05 M/mm3 (4.2-5.4); Red Cell Distribution Width 12.6 % (11.5-14.5); White Blood Count 9.2 K/mm3 (4.5-10.0)
[2024-09-07 18:22] LABS: Alanine Aminotransferase 32 U/L (6-35); Albumin Level 4.2 g/dL (3.5-5.1); Alkaline Phosphatase 65 U/L (38-126); Anion Gap 9 mmol/L (4-12); Aspartate Amino Transferase 30 U/L (14-36); Bilirubin,Total 0.3 mg/dL (0.2-1.3); Blood Urea Nitrogen 13 mg/dL (7-17); Calcium 8.9 mg/dL (8.4-10.2); Carbon Dioxide 25 mmol/L (22-30); Chloride 105 mmol/L (98-107); Estimated CRCL calculation 108 ml/min; Estimated Glomerular Filt Rate > 60; Glucose 101 mg/dL (65-110); Potassium 3.5 mmol/L (3.4-5.0); Sodium 139 mmol/L (137-145)
[2024-09-07 18:25] LABS: INR 0.9; Partial Thromboplastin Time 26.5 Seconds (22.3-36.8); Prothrombin Time 13.1 Seconds (11.1-14.7)
[2024-09-07] MEDS: ACETAMINOPHEN 500 MG TABLET 1000 MG PO (18:38)
[2024-09-07 18:39] LABS: Beta HCG Quantitative < 2.39 mIU/ML
[2024-09-07 18:49] LABS: Bacteria Urine None Seen /hpf; Non Pathogenic Casts 0-2; RBC Urine >100 /hpf (0-2); Squamous Epithelial Cell Urine None Seen /hpf (Few); WBC Urine 0-5 /hpf (0-3)
[2024-09-07 18:54] LABS: Add Urine Microscopic? YES; Appearance Urine Clear (Clear); Bilirubin Urine Negative (Negative); Blood Urine 3+ (Negative); Color Urine Yellow (Yellow); Glucose Urine UA Negative (Negative); Ketones Urine Trace mg/dL (Negative); Leukocyte Esterase Ur Negative LEU/UL (Negative); Nitrate Urine Negative (Negative); Protein Urine Negative (Negative); Specific Grav Ur 1.025 (1.001-1.035)
[2024-09-07 19:07] LABS: BEDSIDEPREGUCG Negative (Negative)
== END 2024-09-07 19:40 | disposition home or self-care (01) ==
PROVIDERS: Emergency Medicine; Emergency Provider Student in an Organized Health Care Education/Training Program; PCP Advanced Practice Midwife
DX: O03.9 Complete or unspecified spontaneous abortion without complication (principal); R31.9 Hematuria, unspecified
CPT/HCPCS: 36415; 80053; 81001; 81025; 84702; 85025; 85461; 85610; 85730; 86850; 86900; 86901; 99284; A9270

== ENCOUNTER 2025-06-10 15:59 | Outpatient (RCR) | payer OTHER, SELFPAY ==
--- NOTE | ~2025-06-10 | US_ITS ---
EXAMINATION: US OB BPP wo non-stress DATE: 06/10/2025 17:52 CDT INDICATION: Cholestasis TECHNIQUE: Real-time transabdominal obstetric ultrasound. FINDINGS: There is a single intrauterine gestation in vertex presentation. The placenta is anterior without pl acenta previa. cardiac activity and movement is noted with a heart rate of 138 beats per minute. Biophysical profile: breathin of 2 movement: 2 of 2 tone: 2 of 2 Amniotic fluid pocket: 2 of 2 Total score: 8 of 8 Amniotic fluid index measures 7 cm, within normal limits. IMPRESSION: 1. Single intrauterine gestation in vertex presentation. 2: Total biophysical profile score of 8 out of 8. Reviewed, dictated and finalized at location A.
[2025-06-10 16:56] VITALS: BP 104/56; PULSE 98
== END 2025-06-30 13:32 | disposition other institution (70) ==
LOC: ANHOBOP 15:59
PROVIDERS: Visit Provider Obstetrics & Gynecology
DX: O26.643 Intrahepatic cholestasis of pregnancy, third trimester (principal); Z3A.34 34 weeks gestation of pregnancy
CPT/HCPCS: 59025; 76819

== ENCOUNTER 2025-06-12 16:54 | Inpatient (IN) | payer OTHER, SELFPAY ==
--- NOTE | 2025-06-12 16:54 | LDADM ---
This patient, Roseline Cruz, was admitted to Labor/Delivery/Recovery 103 on 06/12/25 at 16:54. Plans for labor, pain management and were discussed with patient. Patient/family oriented to hospital policies and general routines including ID bracelet, bed and alarms, visiting hours, pain management, procedures, bathroom and other care routines, personal items, smoking policy, room service/diet and guest tray routines, security routines, and visiting hours. Patient/Family are encouraged to report perceived risks to care and to ask questions if they do not understand what they are told or what they should do. See OBIX for further documentation.
[2025-06-12 17:43] LABS: Hematocrit 33.1 % (37.0-47.0); Hemoglobin 10.7 g/dL (12.0-15.0); Immature Granulocyte Percent A 1.2 % (0-0.5); Lymphocytes Absolute Auto 2.65 K/mm3 (0.9-3.2); Mean Corpuscular HGB Conc 32.3 g/dl (32-36); Mean Corpuscular Hemoglobin 30.1 pg (26-34); Mean Corpuscular Volume 93.2 fl (80-100); Nucleated Red Blood Cells Absolute Auto 0.000 K/mm3 (0.0-0.012); Nucleated Red Blood Cells Perc 0.0 % (0.0-0.2); Platelet Count Result 202 k/mm3 (150-375); Red Blood Count 3.55 M/mm3 (4.2-5.4); White Blood Count 9.3 K/mm3 (4.5-10.0)
[2025-06-12 17:44] VITALS: BMI 33.4
[2025-06-12 17:45] VITALS: BP 110/62; PULSE 89
[2025-06-12 17:48] VITALS: TEMP 36.9
[2025-06-12 18:00] VITALS: BP 107/61; PULSE 88
[2025-06-12 18:21] LABS: Syphilis IgG/IgM Antibody Non-Reactive (Nonreactive)
[2025-06-12 19:00] VITALS: BP 102/55; PULSE 97
--- NOTE | 2025-06-12 19:22 | WPDANESEPP ---
Anes - Eval Pre Procedure Procedure: Labor epidural Date/Time: 06/12/25 19:22 Surgeon: Robbin Preop Diagnosis: Abdominal pain with contractions Pre Op Diagnosis: IOL Patient Data Age: 24 Gender: F Height: 1.68 m Weight: 94 kg Last Vital Signs Temp 98.5 F 06/12/25 17:48 Pulse 97 06/12/25 19:00 BP 102/55 L 06/12/25 19:00 O2 Del Method Room Air 06/12/25 17:40 Allergies Allergy/AdvReac Type Severity Reaction Status Date / Time No Known Allergies Allergy Verified 05/15/22 12:54 Home Medications ?Medication ?Instructions ?Recorded ?Confirmed ?Type acetaminophen 500 mg capsule 1,000 mg (2 x 500 mg) PO Q6H PRN 09/07/24 05/24/25 Rx pain #30 caps vits no.126-ferrous fum 1 tablet PO DAILY 30 days #30 tabs 09/07/24 06/12/25 Rx 28 mg iron-folic acid 800 mcg tablet (Classic ) Laboratory Tests 06/12/25 17:15 WBC 9.3 K/mm3 (4.5-10.0) RBC 3.55 L M/mm3 (4.2-5.4) Hgb 10.7 L g/dL (12.0-15.0) Hct 33.1 L % (37.0-47.0) MCV 93.2 fl (80-100) MCH 30.1 pg (26-34) MCHC 32.3 g/dl (32-36) RDW 14.2 % (11.5-14.5) Plt Count 202 k/mm3 (150-375) MPV 11.3 H fl (7.4-10.4) Immature Gran % (Auto) 1.2 H % (0-0.5) Neut % (Auto) 63.7 % (45.5-73.1) Lymph % (Auto) 28.4 % (18.3-44.2) Patrick % (Auto) 6.0 % (2.6-8.5) Eos % (Auto) 0.4 % (0-4.4) Baso % (Auto) 0.3 % (0.2-1.2) Lymph # (Auto) 2.65 K/mm3 (0.9-3.2) Patrick # (Auto) 0.6 K/mm3 (0.1-0.6) Eos # (Auto) 0.0 K/mm3 (0-0.3) Baso # (Auto) 0.0 K/mm3 (0.0-0.1) Abs Immat Gran (auto) 0.11 H K/mm3 (0.00-0.031) Absolute Neuts (auto) 5.9 K/mm3 (1.3-6.7) Absolute Nucleated RBC 0.000 K/mm3 (0.0-0.012) Nucleated RBC % 0.0 % (0.0-0.2) Syphilis IgG/IgM Ab Non-reactive (Nonreactive) Blood Type O Positive Antibody Screen Negative : gestational age HCG: positive Patient hx anesthesia problems: none Family hx anesthesia problems: none Results Review: All pre-operative results and documents have been reviewed as part of the pre-operative evaluation. [facility] Past Medical History Medical History Overweight (BMI 25.0-29.9) Obesity Family History Family History Mother Hypertension Pre-diabetes Social History Social History Smoking status: Never smoker Second hand tobacco smoke exposure: No Substance use: never Lack of Transportation: No Lack of Food: Never True Current Housing: I Have Housing Concerned About Future Housing: No Difficulty Paying Gas/Electric Bills: No Difficulty Paying for Meds: No Currently Unemployed: No Education: High School Diploma/GED Difficulty w/ Childcare or Family Care: No Spiritual care concerns: No Exam Day of Procedure 06/12/25 19:22 Patient weight: overweight Airway: Mallampati scale class II Neurological: alert and oriented
[2025-06-12 21:00] VITALS: BP 91/53; PULSE 87
[2025-06-12 22:59] VITALS: TEMP 36.6
[2025-06-13] VITALS (96 sets, daily range): BP systolic 70–154; BP diastolic 25–113; PULSE 73–116; RESP 16–18; TEMP 36.4–36.8; O2SAT 97–100
--- NOTE | 2025-06-13 07:39 | WPDHPUPDATE1 ---
History and Physical Update Update Date/Time: 06/13/25 07:39 24-year-old multiparous female who presents for induction of labor for cholestasis of . Artificial rupture membranes was performed. She is 2 cm 20% -2. Clear fluid. Status post Cytotec. Start Pitocin History and Physical has been reviewed, including an updated exam of the patient. There are NO changes in the patient's condition. Risks, benefits, and alternatives have been discussed and questions answered. Patient agrees to proceed with procedure.
[2025-06-13] MEDS: LACTATED RINGERS 1,000 ML 125 ML IV CONT (09:25)
[2025-06-13] MEDS: OXYTOCIN 30 UNITS/NS 500 ML 30 UNITS/500 ML BAG IV CONT (09:26)
[2025-06-13] MEDS: OXYTOCIN 30 UNITS/NS 500 ML 30 UNITS/500 ML BAG 999 UNITS IV CONT (14:49)
--- NOTE | 2025-06-13 14:55 | PM.OBPRVD ---
OB - Vaginal Delivery Note Procedure Delivery date: 06/13/25 Induction method: AROM, Per Misoprostol Protocol and Per Pitocin Protocol Delivery monitor: External FHT and Internal Uterine Route of delivery: Episiotomy description: None Laceration Description: None Specimen: No Quantitative Blood Loss (ml): 200 Anesthesia type: Epidural Disposition: Floor Complications: No immediate complications
[2025-06-13] MEDS: OXYTOCIN 30 UNITS/NS 500 ML 30 UNITS/500 ML BAG 125 UNITS IV CONT (15:35)
--- NOTE | 2025-06-13 17:42 | OBPPTRN ---
Patient transferred to post room #285 via wheelchair. Support person present. Oriented to unit, room, information board, rooming in, admission packet and security measures. Patient verbalizes understanding.
[2025-06-13] MEDS: IBUPROFEN 600 MG TABLET PO (18:25)
[2025-06-13] MEDS: ACETAMINOPHEN 500 MG TABLET 1000 MG PO (18:25)
[2025-06-14] MEDS: IBUPROFEN 600 MG TABLET PO ×3 (00:36→15:29)
[2025-06-14] MEDS: ACETAMINOPHEN 500 MG TABLET 1000 MG PO ×3 (00:36→15:29)
[2025-06-14 04:14] LABS: Hematocrit 33.8 % (37.0-47.0); Hemoglobin 11.0 g/dL (12.0-15.0)
[2025-06-14 07:45] VITALS: BP 106/71; PULSE 80; RESP 16; TEMP 36.6; O2SAT 100
[2025-06-14] MEDS: MULTIVIT/MIN/PREN/FOL AC/IRON TABLET 1 TAB PO (07:48)
[2025-06-14] MEDS: DOCUSATE SODIUM 100 MG CAPSULE PO (07:49)
--- NOTE | 2025-06-14 08:57 | PC.NURSE ---
Introductions were made, then consulted with patient to assess needs related to . Mother led the conversation with her?plans to feed?her infant and the?experience so far. Mother verbalizes she is able to independently latch with appropriate positioning and alignment. She denies any nipple discomfort and is responsively . Mother is encouraged to call for assistance if her doesn?t latch, pain with latching, questions or concerns in regards to . Mother also verbalized that she plans to pump once she is home along with . Nipples measured for correct flange size (19mm) for her personal Medula pump at home (24mm flange). Discussed collection and storage of human milk. Mother denies additional questions at this time and is encouraged to call this RN to assess latch with next feeding.
--- NOTE | 2025-06-14 12:35 | P.PNOB_ITS ---
OB - PN: Subj Subjective Date/time seen: 06/14/25 12:35 Interval history: PPD#1 Doing well, no issues Voiding without issue Pain controlled Ready for discharge home OB - PN: Obj Data Labs 06/14/25 03:17 Labs: Laboratory Results - last 24 hr 06/14/25 03:17 Hgb 11.0 L Hct 33.8 L OB - PN A/P Assessment and Plan (1) (spontaneous vaginal delivery): Code(s): O80 - Encounter for full-term uncomplicated delivery Status: Acute Plan day: 1 Plan: routine care and discharge home Time Spent With Patient Time: Total time spent is greater than 50% in coordination of care (as documented) at patient's floor/unit and/or counseling patient: Review of Systems 2 Review of Systems: All systems reviewed & are unremarkable except as noted in HPI and below Exam 2 Const: General: comfortable and no acute distress O rientation/consciousness: patient oriented x3 Resp: Effort & Inspection: normal respiratory effort
--- NOTE | 2025-06-14 12:38 | PM.OBDSVD ---
DS: Admitting Diagnosis Discharge Date 06/14/25 Admitting Diagnosis intrahepatic cholestasis of DS: Discharge Diagnosis Discharge Diagnosis (1) (spontaneous vaginal delivery): Code(s): O80 - Encounter for full-term uncomplicated delivery Status: Acute OB - DS: Summary OB Procedures : None OB Procedures Intrapartum: Spontaneous Vag Delivery OB Procedures: : None Peripartum Data Laceration Description: None Episiotomy description: None Time Spent with Patient Time attestation: Total time spent providing and/or coordinating discharge services: DS: Data Data Completed and Pending Labs on day of discharge: Labs from last 24 hours 06/14/25 03:17 Hgb 11.0 L Hct 33.8 L Discharge Plan Discharge Attending physician on discharge: Masood Davidson Discharging Clinician: Masood Davidson Patient Disposition: Home Activity: may shower, as tolerated and pelvic rest Diet: as tolerated Patient Instructions: Antibiotic Form Patient Language: Cameroonian Stand Alone Forms: General Discharge Information Follow-up/Referrals: Wayne Siegel MD [Physician] - 5 Weeks Discharge Medications: New ibuprofen 600 mg Tablet 600 mg PO Q6H PRN (Reason: Cramping) Qty: 30 0RF Continued acetaminophen 500 mg capsule 1,000 mg PO Q6H PRN (Reason: pain) Qty: 30 0RF Classic 28 mg iron- 800 mcg tablet 1 tablet PO DAILY 30 Days Qty: 30 0RF Date of admission: 06/12/25 16:54 Primary Care Provider: PHYSICIAN,LEATHER CARTRIDGE BELT MAKER Admitting Provider: Masood Davidson Attending physician on admission: Masood Davidson Condition: Stable
--- NOTE | 2025-06-14 14:35 | WPDANLDPN2 ---
Anes-Prog Note L&D Date/Time: 06/14/25 14:35 Comfortable throughout: labor and delivery Neuraxial method: epidural Epidural/Spinal procedure site: clean & non-tender Neuro status: Neuro function grossly intact. Cardiovascular status: normal Respiratory status: normal Airway patency: baseline Mental status: baseline Vital Signs: Last Vital Signs Temp 36.6 C 06/14/25 07:45 Pulse 80 06/14/25 07:45 Resp 16 06/14/25 07:45 BP 106/71 06/14/25 07:45 Pulse Ox 100 06/14/25 07:45 O2 Del Method Room Air 06/14/25 07:50 Pain score (VAS): 0 I/O: Intake & Output 06/13/25 06/14/25 06/14/25 23:59 07:59 15:59 Intake Total 240 0 Balance 240 0 Patient feedback: Patient satisfied with anesthetic care.
[2025-06-16 11:23] VITALS: BP 103/62; PULSE 89; RESP 16; TEMP 36.7; O2SAT 100
== END 2025-06-14 16:18 | disposition home or self-care (01) | DRG 560 ==
LOC: ANHLDR 16:59 → ANHOB2 06-13 17:43
PROVIDERS: Advanced Practice Midwife; Obstetrics & Gynecology; Admitting Provider Obstetrics & Gynecology; Visit Provider Obstetrics & Gynecology
DX: O26.643 Intrahepatic cholestasis of pregnancy, third trimester (principal); Z37.0 Single live birth; Z3A.39 39 weeks gestation of pregnancy
CPT/HCPCS: 36415; 85014; 85018; 85025; 86593; 86850; 86900; 86901; A9270; J2590; J2795; J7120